=== PATIENT | female | born 1965 | race Caucasian/White ===

== ENCOUNTER 2021-06-15 17:36 | Emergency (ER) | payer OTHER, SELFPAY ==
--- NOTE | ~2021-06-15 | XR_ITS ---
EXAMINATION: XR foot LT min 3V, XR ankle LT min 3V DATE: 06/15/2021 18:04 INDICATION: Lateral left foot and ankle pain post injury TECHNIQUE: 1. Anteroposterior, mortise, additional oblique and lateral view of the left ankle were obtained. 2. Dorsoplantar, two oblique and lateral views of the left foot were obtained. COMPARISON: None. FINDINGS: Tiny minimally displaced avulsion fracture fragment at the tip of the lateral malleolus. Mild deformi ty of the first proximal phalanx which could represent old healed fracture or osteotomy. Alignment of the left foot and ankle is otherwise normal. No other fractures identified. 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 No ankle joint effusion. Mild soft tissue swelling at the dors al and lateral aspect of the midfoot. IMPRESSION: 1. Tiny minimally displaced avulsion fracture fragment at the tip of the lateral malleolus. Reviewed, dictated and finalized at location A. [employer] OFFICER IMPRESSION: 1. Tiny minimally displaced avulsion fracture fragment at the tip of the latera l malleolus.
--- NOTE | 2021-06-15 17:41 | ED.LOWEXIN ---
HPI - Extremity Injury (Lower) General Chief Complaint: Extremity Injury, Lower Stated Complaint: left foot injury Time Seen by Provider: 06/15/21 17:41 Source: patient, family and RN notes reviewed History of Present Illness HPI Narrative: Patient is a 56-year-old female who presents the urgent care with complaints of left foot pain and swelling. Patient states is been ongoing since Monday after she was, packing boxes. Patient states is continued to cause her pain with ambulation. States that she has been taking ibuprofen. No other acute complaints. No acute distress noted. Patient read the plan of care. Some parts of this dictation were generated by voice recognition software and may contain typographical and/or grammatical inaccuracies. Related Data Home Medications Medication Instructions Recorded Confirmed No Home Medications 06/15/21 06/15/21 Allergies Allergy/AdvReac Type Severity Reaction Status Date / Time No Known Allergies Allergy Verified 06/15/21 17:48 Review of Systems Review of Systems: CONSTITUTIONAL: Denies fever, chills, or sweats. EYES: Denies visual changes, redness, or discharge. ENT: Denies rhinorrhea, congestion, sore throat, or otalgia. CARDIOVASCULAR: Denies chest pain, palpitations, or edema. RESPIRATORY: Denies cough or dyspnea. GASTROINTESTINAL: Denies abdominal pain, nausea, vomiting, or diarrhea. GENITOURINARY: Denies dysuria or hematuria. SKIN: Denies rash or itching. MUSCULOSKELETAL: Reports of left foot pain and swelling NEUROLOGIC: Denies headache, numbness, or weakness. All other systems reviewed are negative, except as documented in HPI. PMFSH Comments At the time of my signature, I reviewed and agree with the nursing past medical, surgical, social, and family history. There is no relevant family history pertinent to the patient complaint. Exam Narrative: GENERAL: This is a well-nourished, well-developed patient, in no apparent distress. HEAD: normocephalic, atraumatic. EYES: PERRL. Sclera clear/white. Vision is grossly intact. EARS: External ears normal NOSE: External nose normal with no obvious nasal discharge, nares without redness, no rhinorrhea. THROAT: Mucous membranes moist NECK: Neck supple CARDIOVASCULAR: Regular rate and rhythm without murmurs, gallops, or rubs. RESPIRATORY: Clear to auscultation. Breath sounds equal bilaterally. No wheezes, rales, or rhonchi. SKIN: warm, intact with no suspicious lesions or rash, good texture and turgor. NEURO: awake, alert, and oriented to person, place and time. There were no obvious focal neurologic abnormalities. EXTREMITIES: No obvious deformity, ecchymosis or edema noted to the left lower extremity. Exacerbated pain to the dorsal and plantar aspect of the left foot with ambulation. Positive strong left pedal pulse with capillary refill less than 2 seconds Course Course Level of Care: Express Care Visit Vital Signs Vital signs: Vital Signs Temperature 99.0 F 06/15/21 17:44 Pulse Rate 104 H 06/15/21 17:44 Respiratory Rate 16 06/15/21 17:44 Blood Pressure 150/85 H 06/15/21 17:44 Pulse Oximetry 99 06/15/21 17:44 Temperature 99.0 F 06/15/21 17:44 Pulse Rate 104 H 06/15/21 17:44 Respiratory Rate 16 06/15/21 17:44 Blood Pressure 150/85 H 06/15/21 17:44 Pulse Oximetry 99 06/15/21 17:44 Reviewed-patient is informed that they may have pre-hypertension or hypertension based on a blood pressure reading in the department. I recommend the patient call the primary care provider listed on their discharge instructions or a physician of their choice this week to arrange follow-up for further evaluation of possible pre-hypertension or hypertension. Procedures Orthopedic Splinting/Casting Injury #1: Additional Comments: Patient refused OCL MDM - Extremity Injury (Lower) MDM Narrative Medical decision making narrative: Reviewed x-ray results with the patient. She is aware that she has a sm
[2021-06-15 17:44] VITALS: BP 150/85; PULSE 104; RESP 16; TEMP 37.2; O2SAT 99
== END 2021-06-15 18:45 | disposition home or self-care (01) ==
PROVIDERS: Emergency Provider Nurse Practitioner Family
DX: S82.62XA Displaced fracture of lateral malleolus of left fibula, initial encounter for closed fracture (principal); X58.XXXA Exposure to other specified factors, initial encounter
CPT/HCPCS: 73610; 73630; 99213; G0463